=== PATIENT | female | born 1935 | race Caucasian/White ===

== ENCOUNTER 2016-09-29 06:02 | Inpatient (IN) | payer MEDICARE ==
--- NOTE | 2016-09-21 18:55 | HP ---
PREOPERATIVE HISTORY AND PHYSICAL: DATE OF ADMISSION/SURGERY: 09/29/16 DATE OF OFFICE VISIT: 09/21/16 ATTENDING SURGEON: Noel Marinelli MD PROCEDURE: Right total shoulder reverse. CHIEF COMPLAINT: Right shoulder pain. HISTORY OF PRESENT ILLNESS: Brisa is an 81-year-old female who presents to the clinic for ongoing right shoulder pain for several years. She has failed conservative measures to include physical the rapy, injections, and NSAIDs and therefore has agreed to undergo a right total shoulder reverse with Dr. Marinelli on 09/29/16. PAST MEDICAL HISTORY: 1. Osteoarthritis. 2. Osteopenia. PAST SURGICAL HISTORY: ORIF of the right femur at age 8, bilateral total knee replacements and skin graft surgery. Denies prior complications with anesthesia. MEDICATIONS: 1. Ibuprofen 200 mg as needed. 2. Amoxicillin 500 mg 4 tabs 1 hour prior to dental work. 3. Multivitamins daily. 4. Calcium plus vitamin D one tab by mouth daily. 5. Risedronate sodium 150 mg. ALLERGIES: No known drug allergies. FAMILY HISTORY: Denies pertinent family history. SOCIAL HISTORY: She lives with her spouse. She is a former smoker, she quit in 1966. She reports occasional alcohol consumption. She denies illicit drug use. REVIEW OF SYSTEMS: General: Negative for fever, chills, night sweats. No known anesthesia problem s. HEENT: Negative for headache, lightheadedness, or syncopal episodes. Integumentary: Negative for abrasions, lesions, or open wounds. Cardiothoracic: Negative for chest pain, palpitations, or e car. Negative for hypertension. Pulmonary: Negative for shortness of breath with exertion, chron ic cough or COPD. GI: Negative for nausea, vomiting, diarrhea, constipation, or GERD. : Negati ve for nocturia, urinary frequency, urinary urgency, history of UTI or kidney problems. Musculoskel etal: Positive for current complaint. Neuro: Negative for numbness, tingling, or history of seizur e, stroke, or epilepsy. Endocrine: Negative for diabetes or thyroid issues. Heme: Negative for ea sy bruising, bleeding disorder, excessive bleeding, anemia, history of DVT or PE. Infectious Disease : Negative for history of MRSA, hepatitis C, or HIV. PHYSICAL EXAMINATION GENERAL: Well-developed, well-nourished 81-year-old female in no acute distress. VITAL SIGNS: Height 61, weight 111. Pulse 60, blood pressure 138/82, respiratory rate 15, temperat ure 96.6. BMI 21.0. HEENT: Normocephalic, atraumatic. PERRLA. Throat clear. NECK: Supple. PULMONARY: Lungs clear to auscultation bilaterally. No wheezing, rhonchi, or rales. CARDIO: Regular rate and rhythm. S1 and S2. No murmurs, gallops, or rubs. No edema. ABDOMEN: Positive bowel sounds, soft, nontender. EXTREMITIES: Right upper extremity: Skin is intact. No warmth or erythema. Tenderness to palpatio n over the subacromial space. Forward flexion 180, abduction 180, external rotation 75, internal ro tation 310. +4/5 strength to supraspinatus, infraspinatus, and subscapularis testing. Positive Nee r, Speed's, Mast-Sherman, and [place]. +2 radial pulse. Sensation is intact to light touch dist ally. NEUROLOGIC: Alert and oriented x3. Cranial nerves grossly intact. Sensation is intact to light to uch. STUDIES: Multiple view x-rays of the right shoulder revealed mild osteoarthritis and superior migr ation of humeral head. MRI of the right shoulder reveals complete supraspinatus tendon tear with retraction of the tendon a nd superior migration of humeral head with mild osteoarthritis. IMPRESSION: Right shoulder osteoarthritis and right shoulder rotator cuff tear. PLAN: The patient is scheduled to undergo a right shoulder reverse with Dr. Marinelli on 09/29/16. Sh e will return to the office 10 to 14 days postoperative followup and suture removal. Percocet was p rescribed for postoperative pain management. The patient has been cleared by her PCP for surgery. JARRET NGUYEN [id number]/[facility] #: [id number]
[~2016-09-29 06:02] MED LIST: Buffered Lidocaine 0.9% SYRIN* 5 ML/SYR SYRINGE INTRADERM ONE; Dexamethasone IV* 4 MG/ML 1 ML (4 MG) IV SLOW PU ONE; Famotidine IV* 10 MG/ML 2 ML (20 mg) IV ONE
[2016-09-29] MEDS ORDERED: Famotidine IV* 10 MG/ML 2 ML (20 mg) ONE (06:16)
[2016-09-29] MEDS ORDERED: ceFAZolin 2 GM PREMIX(*) 2 GM/50 ML BAG IVPB ONE (06:16)
[2016-09-29] MEDS ORDERED: Dexamethasone IV* 4 MG/ML 1 ML (4 MG) ONE (06:16)
[2016-09-29] MEDS ORDERED: Propofol* 10 MG/ML 20 ML BTL IV PUSH ONE (07:06)
[2016-09-29] MEDS ORDERED: Midazolam* 1 MG/ML 5 ML VIAL (5 MG) ONE (07:06)
[2016-09-29] MEDS ORDERED: Ketorolac INJ* 30 MG/ML 1 ML VIAL ONE (07:06)
[2016-09-29] MEDS ORDERED: Atracurium* 10 MG/ML 10 ML VIAL ONE (07:06)
[2016-09-29] MEDS ORDERED: fentaNYL* 50 MCG/ML 2 ML VIAL (100 MCG VIAL) ONE (07:06)
[2016-09-29] MEDS ORDERED: Ondansetron INJ* 2 MG/ML VIAL ONE (07:06)
[2016-09-29] MEDS ORDERED: Phenylephrine INJ* 10 MG/ML 1 ML VIAL (10 MG) ONE (07:07)
[2016-09-29] MEDS ORDERED: ROPIVACAINE 5 MG/ML 30 ML BTL (0.5%) ONE (07:21)
[2016-09-29] MEDS ORDERED: Glycopyrrolate IV* 0.2 MG/ML 1 ML VIAL ONE (08:24)
[2016-09-29] MEDS ORDERED: Atropine 1MG/ML INJ* 1 ML VIAL ONE (08:24)
[2016-09-29] MEDS ORDERED: Desflurane* 240 ML INH ONE (08:29)
[2016-09-29] MEDS ORDERED: HYDROmorphone* 1 MG/ML 1 ML SYR IV PRN (08:42)
[2016-09-29] MEDS ORDERED: oxyCODONE/Acetamin 5/325 MG* TAB PO PRN ×2 (08:42→10:04)
[2016-09-29] MEDS ORDERED: fentaNYL* 50 MCG/ML 2 ML VIAL (100 MCG VIAL) IV PRN (08:42)
[2016-09-29] MEDS ORDERED: DiMENhydriNATE IV* 50 MG/ML VIAL IV PUSH PRN (08:42)
[2016-09-29] MEDS ORDERED: Ondansetron INJ* 2 MG/ML VIAL IV PRN ×2 (08:42→10:04)
[2016-09-29] MEDS ORDERED: diPHENhydraMINE IV* 50 MG/ML 1 ml VIAL (BENADRYL) IV PRN (10:04)
[2016-09-29] MEDS ORDERED: oxyCODONE TAB* 5 MG TAB PO PRN (10:04)
[2016-09-29] MEDS ORDERED: Morphine INJ* 2 MG/ML 1 ML SYRINGE IV PRN (10:04)
[2016-09-29] MEDS ORDERED: Acetaminophen TAB* 325 MG PO PRN (10:04)
[2016-09-29] MEDS ORDERED: Polyethylene Glycol 3350* 17 GM PACKET PO PRN (10:04)
--- NOTE | 2016-09-29 11:23 | RAD ---
INDICATION: Right shoulder postoperative study status post arthroplasty. TECHNIQUE: 4 views of the right shoulder were obtained. FINDINGS: The patient is status post total right shoulder replacement with a reversed polarity prosthesis. There is a single surgical drain present. IMPRESSION: STATUS POST TOTAL RIGHT SHOULDER REPLACEMENT SURGERY.
--- NOTE | 2016-09-29 15:16 | PN ---
Progress Note - Progress Note Date of Service: 09/29/16 Note: POD 0 from R reverse arthroplasty doing well. sitting in chair alert and comfortable. block still working. NAD. dressing and drain in place. extremity warm and well perfused. unable to move digits nor feel. A/P doing well. post op xrays reviewed and acceptable. post op abx, dvt ppx while inhouse potential discharge tomorrow
[2016-09-29] MEDS: ceFAZolin VIAL(*) 1 GM in NS 0.9% 50 ML* 50 ML IVPB SCH (15:39)
[2016-09-29] MEDS ORDERED: NS 0.9% 50 ML* 50 ML ONE (23:58)
[2016-09-30] MEDS: oxyCODONE/Acetamin 5/325 MG* TAB PO PRN ×2 (06:19→11:39)
--- NOTE | 2016-09-30 06:27 | OP ---
DATE OF OPERATION: 09/29/16 - ROOM #340 DATE OF : 37 SURGEON: Noel Marinelli MD. ASSISTANTS: 1. JARRET Seals 2. "Britany Green" 3. "Rochelle", a PA student. ANESTHESIOLOGIST: Dr. Cheung. ANESTHESIA: General, interscalene block. PRE-OP DIAGNOSIS: Right massive rotator cuff tear arthropathy. POST-OP DIAGNOSIS: Right massive rotator cuff tear arthropathy. OPERATIVE PROCEDURE: Right shoulder reverse shoulder arthroplasty as well as open biceps tenodesis. COMPLICATIONS: None. ESTIMATED BLOOD LOSS: About 100 cc. IMPLANTS USED: Aequalis Reversed II centered glenosphere 36 mm, threaded baseplate which was 25 x 30 mm with the appropriate length screws. The Aequalis Ascend Flex 3B and 9 mm poly and centered tray. INDICATIONS: Brisa Yoon is an 81-year-old female who sustained injury to her shoulder after a fall. She failed conservative management with diagnosis of full thickness massive rotator cuff tear. She was having persistent pain and disability with function. She is very active. She has had some level of shoulder pain for several years and then acutely got worse in the last year. After extensive discussion of risks and benefits of operative versus nonoperative treatment, she has elected to proceed with operative treatment. After obtaining preoperative risk assessment, we have set her up for right shoulder reverse arthroplasty. Risks included but are not limited to bleeding, infection, damage to nerves, vessels, and surrounding structures, the wound nonhealing, persistent pain, need for further surgery, stiffness, scarring, persistent pain, fracture, dislocation, risks of DVT, risks of anesthesia. DESCRIPTION OF PROCEDURE: The patient was greeted in the preoperative area by the attending surgeon. Correct extremity was marked and consent was confirmed. She then underwent an interscalene nerve block by the anesthesiologist in the preoperative block area, after which the patient was brought back to the operating suite. She was placed in supine position on the operating table. She then underwent general anesthesia and endotracheal intubation, after which the patient was carefully positioned in the lazy beach-chair position. She had a pillow under her knees, all bony prominences were padded, she was secured to the bed, and the right shoulder was then prepped and draped in the usual sterile fashion beginning with chlorhexidine soap, scrub and alcohol wipe, and a final prep with ChloraPrep. After appropriate surgical pause indicating site, side, and procedure and administration of antibiotics, the deltopectoral incision was made sharply with an 11 blade. The soft tissues were carefully dissected to expose the cephalic vein, which was then retracted laterally with the deltoid. A blunt Hohmann was placed over the coracoid. The Kolbel retractor was used to expose the deltopectoral interval. The anterior bursa was removed. The CA ligament was released. The pec tendon was identified and the first centimeter or so was released off the bone. The biceps was then tenodesed at this point using heavy non-absorbable suture. The biceps was tenotomized proximal to this and followed up into the joint line to the joint. This exposed the subscapularis as well as the anterior aspect of the shoulders. The anterior circumflex vessels were then suture ligated with 2-0 Vicryls and then the subscap along with the anterior aspect of the shoulder and the subscap was released using the electrocautery device in a subscap peel approach. The subscap was tagged using # 5 Ethibond suture to help with tension and the shoulder was carefully externally rotated and soft tissues were carefully protected to make sure it is close to bone and no damage to the exiting nerve was done. There was a full thickness massive rotator cuff tear. The head was exposed. There was no osteophytes, but there were areas of grade 0 to 1 changes and then a centered area of grade 2 and 3 chondral changes. Once the shoulder was fully delivered through the wound, the sagittal saw was then used to make the humeral head cut, then the canal finder and the rasping was begun. A size 2 was found to fit appropriately and therefore, a reaming was done and the protection baseplate was placed. The shoulder was then brought back into the wound and the glenoid was exposed. Care was taken to gently place retractors as the bone quality was not great. The adhesions of the subscap were released anteriorly and the superior, middle and inferior glenohumeral ligaments were released using a curved Saleh and an electrocautery device was prepared to protect that the releases were done on the inside of the subscap. A glenoid neck retractor was placed as well as the posterior retractor and superior retractor to allow for removal of the superior and anterior labrum all the way to the 5 o'clock position. The biceps was later sent to the micro lab to look for P. acnes. Once the anterior labrum had been released, the remainder of the dissection of the inferior labrum was done with a needle-tip Bovie and gentle traction on the soft tissue. The entire length of the glenoid was exposed. Any remaining cartilage was carefully removed using a Cárdenas. At this point, the glenoid guide was then used and a 0 offset guide was used and the guidewire was placed appropriately. The 25-mm reamer was then used to remove any excess cartilage. The 36-mm rasp was then used on hand to make sure that there was no bony edges that were done. Again care was taken to protect because there were cysts preoperatively behind the glenoid and every effort was maintained to try to protect the glenoid integrity. After this was done, all excess debris was removed. The 8-mm guide cannulated drill bit was then used to drill, then the 6.5-mm drill bit was drilled. The glenoid depth was found to be about 30 mm. The baseplate was then checked and brought to the table and after the screw hole was tapped, then a size 30 x 25 mm, 30 length glenoid baseplate was used and seated with excellent fit. There was a small amount of bone lost posteriorly, so bone graft was placed there. Then three nonlocking screws were placed with the appropriate length. At this point, the glenosphere was then placed and packed into position and then secured with a set screw. Attention was then directed to the humerus. The guide was then placed on and there was found to be a little bit of shuck. The size 2 was then placed back and this was found to sink a little deeper, therefore, a size 3 was attempted to be impacted into place. It was found to have a little bit of a better fit, although perhaps a slight amount of offset. It did have an excellent press-fit, however. It was decided to try this and trial with this implant. The centered baseplate was placed and a size 6 poly was placed and it was found to reduce and have good range of motion with forward flexion to about 170, abduction to about 100 degrees, external rotation to about 80 degrees with a decent amount of shuck, but it was able to be easily relocated, therefore, the decision was made to try a size up poly. A size 9 mm poly was used and it was found to again allow for 170 degrees of forward flexion , 90 degrees of abduction, external rotation of about 80 degrees, and this was chosen as final implant. Final implants were brought in to the back table after they were checked by the attending. These were then impacted in place by the attending surgeon. The humeral shaft was prepared by using a 2.0 mm drill bit, three transosseous tunnels to allow for #5 Ethibond suture placement for a subscap repair. The final prosthesis was brought to the operating table and impacted into good position. This was found to be well fit. The shoulder was then reduced and taken through range of motion, was found to be the same range of motion. The subscap sutures were then passed through the subscapularis tendon in a horizontal mattress configuration and tied down. Prior to the subscap repair, the wounds were copiously irrigated with sterile saline. The subscap was then repaired. The wounds were then copiously irrigated again with sterile saline and a large Hemovac was then placed and irrigation one more time prior to the deltopectoral interval being closed with #2 Ti-Cron, and then one last bit of irrigation before the subcutaneous tissues were closed with 2-0 Vicryl and the skin with 3-0 Monocryl. Sterile dressings were applied. She was awoken from anesthesia. A Cryo/Cuff and an UltraSling were applied with no pillow. She was awoken from anesthesia and transferred to the PACU in stable condition. POSTOPERATIVE PLAN: She will be admitted overnight. The Hemovac will be discontinued on postop day 1. She will get 24 hours of postop antibiotics. She will be on heparin while in the hospital for DVT prophylaxis, but discharged on nothing. She will be allowed to work on passive range of motion only of the shoulder and active range of motion of the elbow, wrist and hand. I will see the patient back in 10 to 14 days. She will be in the sling for a total of 6 weeks. [id number]/[facility] #: [id number] MTDD
[2016-09-30 07:42] VITALS: BP 139/60
[2016-09-30 07:49] LABS: Hematocrit 33 % (35-47); Hemoglobin 10.6 g/dl (12.0-16.0)
[2016-09-30 08:17] LABS: BUN/Creatinine Ratio 22.6 (8-20); Calcium 8.2 mg/dL (8.6-10.3); EGFR African American 119.1 (>60); EGFR Non-African American 92.6 (>60); Potassium 4.1 mmol/L (3.5-5.0)
[2016-09-30] MEDS: ceFAZolin VIAL(*) 1 GM in NS 0.9% 50 ML* 50 ML IVPB SCH ×3 (08:44)
[2016-09-30] MEDS ORDERED: Enoxaparin(*) 30 MG/0.3 ML SYR SUBCUT SCH (11:00)
--- NOTE | 2016-09-30 11:04 | PN ---
Progress Note - Progress Note Date of Service: 09/30/16 SOAP: Subjective: []Patient seen OOB in chair, daughter present. She is doing very well, pain tolerated well. She wants to get dressed now and go home [place]. Objective: [] Vital Signs Temp 97.9 F 09/30/16 07:25 Pulse 50 09/30/16 07:25 Resp 16 09/30/16 08:51 BP 139/60 09/30/16 07:25 Pulse Ox 96 09/30/16 07:25 Intake & Output 09/29/16 09/30/16 09/30/16 18:59 06:59 18:59 Intake Total 2874 1826 1499 Output Total 850 650 Balance 2023 1176 1499 Intake: IV Fluids 6656 635 6294 ABX - CEFAZOLIN 60 53 LR 1564 666 986 Oral 1310 1100 460 Output: Hemovac Amount #1 250 50 Urine 600 600 Other: Estimated Void Medium # Voids 1 Laboratory Results - last 24 hr 09/30/16 09/30/16 07:36 07:36 Hgb 10.6 L Hct 33 L Sodium 135 Potassium 4.1 Chloride 108 Carbon Dioxide 22 Anion Gap 5 BUN 14 Creatinine 0.62 Est GFR ( Amer) 119.1 Est GFR (Non-Af Amer) 92.6 BUN/Creatinine Ratio 22.6 H Glucose 118 H Calcium 8.2 L Right shoulder hemovac drain discontinued with some bloody drainage from drain site, uneventful, tip intact new tegaderm applied RUE neuro intact with good sensation and motion of all digits, no edema Sling comfortable Assessment: []s/p Reverse right total shoulder arthroplasty POD#1 Plan: []Discharge home today Follow up as scheduled with Dr. Marinelli
--- NOTE | 2016-10-01 12:16 | DS ---
DISCHARGE SUMMARY: DATE OF ADMISSION: 09/29/16 DATE OF DISCHARGE: 09/30/16 ADMISSION DIAGNOSIS: Massive rotator cuff tear arthropathy, right shoulder. DISCHARGE DIAGNOSIS: Massive rotator cuff tear arthropathy, right shoulder. SURGERY PERFORMED: Right shoulder reverse shoulder arthroplasty as well as open biceps tenodesis. HOSPITAL COURSE: The patient is an 81-year-old female who sustained an injury to her shoulder after falling. She had a resultant full-thickness massive rotator cuff tear. She is a very active perso n and had continued pain and disability and decrease in her activities of daily living. She was giv en the option of surgical intervention and elected to proceed with the aforementioned procedure. Prisca walters was taken to the operating room under the care of Dr. Noel Marinelli on the date of 09/29/16. She t olerated the procedure well and left the operating room in stable condition. Postoperatively, she d id extremely well. Her pain was managed very well postoperative day #1. The patient had excellent motion of all of her fingers with full sensation and felt that she would like to go home postoperati ve day #1 on 09/30/16. CONDITION ON DISCHARGE: The patient was afebrile. Her vital signs were stable. Her neurovascular s tatus was grossly intact in the right upper extremity. She was moving all digits freely. Axillary nerve function intact, 2+ radial pulse. Her Hemovac drain was discontinued postoperative day #1 wit h a new dressing applied. PLAN: Discharge to home. She will continue to wear the shoulder immobilizer, she may shower on Tue10/02/16 avoiding submerging her wound. She may remove the sling to work on elbow range of mo tion. She has a prescription of Percocet to use for pain. She has a scheduled followup with Dr. Nuno seen in 7 to 10 days in the office. If she has any increased pain, redness, drainage from her wound , swelling of the arm, paresthesias; the office will be contacted prior to her scheduled appointment . JARRET MOREJON [id number]/[facility] #: [id number]
== END 2016-09-30 11:55 | disposition home or self-care (01) | DRG 483 ==
LOC: AA 06:02 → SSU 11:14
PROVIDERS: ADMIT Orthopaedic Surgery; ATTEND Orthopaedic Surgery
PROC: 0PUC07Z Supplement Right Humeral Head with Autologous Tissue Substitute, Open Approach (ICD-10-PCS; 2016-09-29)
PROC: 0RRJ00Z Replacement of Right Shoulder Joint with Reverse Ball and Socket Synthetic Substitute, Open Approach (ICD-10-PCS; principal; 2016-09-29 07:30)
DX: M12.811 Other specific arthropathies, not elsewhere classified, right shoulder (principal); M85.611 Other cyst of bone, right shoulder; S46.011A Strain of muscle(s) and tendon(s) of the rotator cuff of right shoulder, initial encounter; Z96.653 Presence of artificial knee joint, bilateral; W19.XXXA Unspecified fall, initial encounter; Y92.9 Unspecified place or not applicable; Z87.891 Personal history of nicotine dependence
CPT/HCPCS: 36415; 80048; 85014; 85018; 87070; 87205; 88304; 88311; A9270-GY; C1713; C1776; J0461; J0690; J1100; J1650; J1885; J2250; J2405; J2704; J2795; J3010